=== PATIENT | male | born 1955 | race Caucasian/White ===

== ENCOUNTER 2017-10-05 16:24 | Inpatient (IN) ==
[2017-10-05] MEDS ORDERED: ALBUTEROL/IPRATROPIUM 3 ML NEB RESP TX STA (17:41)
[2017-10-05] MEDS ORDERED: LEVOFLOXACIN 500 MG TABLET PO STA (17:41)
[2017-10-05] MEDS ORDERED: methylPREDNISolone SOD SUC 125 MG/2 ML VIAL IV STA (17:41)
[2017-10-05] MEDS ORDERED: methylPREDNISolone SOD SUC 125 MG/2 ML VIAL ONE (18:12)
[2017-10-05] MEDS ORDERED: LEVOFLOXACIN 500 MG TABLET ONE (18:12)
[2017-10-05] MEDS ORDERED: LEVALBUTEROL 1.25 MG/3 ML NEB RESP TX STA (18:23)
[2017-10-05 18:32] LABS: ABG HCO3 27.9 MMOL/L (20-26); ABG Oxygen Saturation 95.1 % (95-100); ABG PCO2 52.2 MM HG (35-48); ABG PH 7.374 (7.35-7.45); ABG PO2 82.2 MM HG (80-95)
[2017-10-05 18:54] LABS: Basophils % 0.4 % (0.0-0.8); Eosinophils # 0.1 10*3/uL (0.0-0.87); Eosinophils % 1.2 % (0.00-10.9); Hematocrit 30.6 VOL% (42.0-52.0); Hemoglobin 9.9 GM/DL (14.0-18.0); Immature Granulocytes % 0.5 %; Immature Granulocytes Absolute 0.04 #; Mean Corpuscular HGB Conc 32.4 GM/DL (32-36); Mean Corpuscular Hemoglobin 28 PG (27-34); Mean Corpuscular Volume 86.4 FL (87-102); Mean Platelet Volume 9.6 FL (9.6-12.0); Monocytes # 0.8 10*3/uL (0.11-0.8); Monocytes % 10.3 % (1.7-12.7); Neutrophils # 5.8 10*3/uL (1.4-7.4); Neutrophils % 74.6 % (38.7-73.9); Platelet Count 441 T/CUMM (130-400); Red Blood Count 3.54 MC/CUMM (3.8-5.5); Red Cell Distribution Width 14.8 % (9.3-17.3); White Blood Count 7.7 T/CUMM (4-12)
[2017-10-05 18:55] LABS: Alanine Aminotransferase 14 U/L (16-61); Albumin 2.2 G/DL (3.4-5.0); Alkaline Phosphatase 185 U/L (45-117); Aspartate Amino Transferase 18 U/L (0-37); Bilirubin,Total < 0.39 MG/DL (0.2-1.0); Blood Urea Nitrogen 9 MG/DL (7-18); Calcium 8.2 MG/DL (8.5-10.1); Glucose 119 MG/DL (74-106); Osmolality,Calculated 263.5 MOS/KG (273-304); Potassium 3.9 MMOL/L (3.5-5.1); Sodium 132 MMOL/L (136-145); Total Protein 6.9 G/DL (6.4-8.3); Troponin I Only < 0.015 NG/ML (0.00-0.045)
[2017-10-05] MEDS ORDERED: SODIUM CHLORIDE 0.9% 1,000 ML IV STA (19:21)
[2017-10-05] MEDS ORDERED: ONDANSETRON 4 MG/2 ML VIAL IV PRN (20:47)
[2017-10-05] MEDS ORDERED: NICOTINE 21 MG/24 HR PATCH TRANSDERM PRN (20:47)
[2017-10-05] MEDS ORDERED: GLUCAGON 1 MG VIAL IM PRN (20:47)
[2017-10-05] MEDS ORDERED: ALBUTEROL/IPRATROPIUM 3 ML NEB RESP TX PRN (20:47)
[2017-10-05] MEDS ORDERED: DEXTROSE 50% 25 GM/50 ML VIAL IV PRN (20:47)
[2017-10-05] MEDS ORDERED: ZALEPLON 5 MG CAPSULE PO PRN (20:47)
[2017-10-05] MEDS ORDERED: MORPHINE 4 MG/1 ML VIAL IV PRN (20:47)
[2017-10-05] MEDS: ENOXAPARIN 40 MG/0.4 ML SYRINGE SUBCUT SCH (21:40)
[2017-10-05] MEDS: CILOSTAZOL 50 MG TABLET PO SCH (21:41)
[2017-10-05] MEDS: DOCUSATE SODIUM 100 MG CAPSULE PO SCH (21:41)
[2017-10-05] MEDS: INSULIN REGULAR 100 UNIT/ML SUBCUT SCH (21:42)
[2017-10-05] MEDS: SODIUM CHLORIDE 0.9% 1,000 ML IV SCH (21:42)
[2017-10-05 21:47] LABS: Risk Ratio 3.3
[2017-10-06] MEDS ORDERED: METOPROLOL TARTRATE 5 MG/5 ML VIAL IV ONE (00:14)
[2017-10-06] MEDS: ALBUTEROL/IPRATROPIUM 3 ML NEB RESP TX SCH ×4 (00:29→19:31)
[2017-10-06] MEDS: methylPREDNISolone SOD SUC 40 MG/1 ML VIAL IV SCH ×2 (02:50→09:00)
[2017-10-06] MEDS: SODIUM CHLORIDE 0.9% 1,000 ML IV SCH ×3 (06:11→23:42)
[2017-10-06] MEDS: INSULIN REGULAR 100 UNIT/ML SUBCUT SCH ×4 (08:01→21:02)
[2017-10-06] MEDS: PANTOPRAZOLE 40 MG TABLET PO SCH (09:00)
[2017-10-06] MEDS: MULTIVITAMIN (CENTRUM) TABLET PO SCH (09:00)
[2017-10-06] MEDS: DOCUSATE SODIUM 100 MG CAPSULE PO SCH ×2 (09:00→20:58)
[2017-10-06] MEDS: CILOSTAZOL 50 MG TABLET PO SCH (09:00)
[2017-10-06] MEDS: THIAMINE 100 MG TABLET PO SCH (09:00)
[2017-10-06] MEDS: FOLIC ACID 1 MG TABLET PO SCH (09:01)
[2017-10-06] MEDS: ASPIRIN EC 81 MG TABLET PO SCH (09:01)
[2017-10-06] MEDS ORDERED: ALBUTEROL/IPRATROPIUM 3 ML NEB RESP TX PRN (10:13)
[2017-10-06] MEDS: DEXAMETHASONE 4 MG/1 ML VIAL IV SCH (16:22)
[2017-10-06] MEDS: ENOXAPARIN 40 MG/0.4 ML SYRINGE SUBCUT SCH (20:58)
[2017-10-07] MEDS: ALBUTEROL/IPRATROPIUM 3 ML NEB RESP TX SCH ×4 (00:30→18:47)
[2017-10-07] MEDS: DEXAMETHASONE 4 MG/1 ML VIAL IV SCH ×3 (01:20→16:56)
[2017-10-07] MEDS: SODIUM CHLORIDE 0.9% 1,000 ML IV SCH ×4 (05:38→16:56)
[2017-10-07 06:28] LABS: Basophils % 0.1 % (0.0-0.8); Hematocrit 30.1 VOL% (42.0-52.0); Hemoglobin 9.1 GM/DL (14.0-18.0); Immature Granulocytes Absolute 0.16 #; Lymphocytes # 0.8 10*3/uL (1.4-4.0); Lymphocytes % 5.1 % (21.2-54.2); Mean Corpuscular HGB Conc 30.2 GM/DL (32-36); Mean Corpuscular Hemoglobin 27 PG (27-34); Mean Corpuscular Volume 89.3 FL (87-102); Mean Platelet Volume 9.3 FL (9.6-12.0); Monocytes # 0.6 10*3/uL (0.11-0.8); Monocytes % 4.1 % (1.7-12.7); Neutrophils # 13.9 10*3/uL (1.4-7.4); Neutrophils % 89.7 % (38.7-73.9); Platelet Count 403 T/CUMM (130-400); Red Blood Count 3.37 MC/CUMM (3.8-5.5); Red Cell Distribution Width 14.7 % (9.3-17.3); White Blood Count 15.4 T/CUMM (4-12)
[2017-10-07 07:00] LABS: Partial Thromboplastin Time 31.7 SECS (0-40)
[2017-10-07] MEDS ORDERED: BENZONATATE 100 MG CAPSULE PO ONE (08:00)
[2017-10-07] MEDS ORDERED: diphenhydrAMINE 50 MG/1 ML VIAL IM ONE (08:00)
[2017-10-07] MEDS ORDERED: MEPERIDINE 50 MG/1 ML VIAL IM ONE (08:00)
[2017-10-07] MEDS: FOLIC ACID 1 MG TABLET PO SCH (08:15)
[2017-10-07] MEDS: DOCUSATE SODIUM 100 MG CAPSULE PO SCH ×2 (08:15→20:09)
[2017-10-07] MEDS: PANTOPRAZOLE 40 MG TABLET PO SCH (08:15)
[2017-10-07] MEDS: THIAMINE 100 MG TABLET PO SCH (08:15)
[2017-10-07] MEDS: ASPIRIN EC 81 MG TABLET PO SCH (08:15)
[2017-10-07] MEDS: MULTIVITAMIN (CENTRUM) TABLET PO SCH (08:15)
[2017-10-07] MEDS: INSULIN REGULAR 100 UNIT/ML SUBCUT SCH ×4 (08:16→20:43)
[2017-10-07] MEDS: LIDOCAINE 2% VISCOUS 100 ML BOTTLE SWISH/SPIT ONE ×2 (08:40→10:02)
[2017-10-07] MEDS: LIDOCAINE 2% 20 ML VIAL RESP TX ONE ×2 (08:45→10:02)
[2017-10-07] MEDS ORDERED: MIDAZOLAM 2 MG/2 ML VIAL ONE (08:47)
[2017-10-07] MEDS: LIDOCAINE 1% 20 ML VIAL MISC INJ ONE ×2 (09:00→10:02)
[2017-10-07] MEDS ORDERED: EPINEPHrine 1 MG/10 ML SYRINGE IV ONE (09:00)
[2017-10-07] MEDS ORDERED: EPINEPHrine 1 MG/ML VIAL ONE (10:19)
[2017-10-07] MEDS: ENOXAPARIN 40 MG/0.4 ML SYRINGE SUBCUT SCH (20:09)
[2017-10-08] MEDS: DEXAMETHASONE 4 MG/1 ML VIAL IV SCH ×3 (00:14→17:34)
[2017-10-08] MEDS: SODIUM CHLORIDE 0.9% 1,000 ML IV SCH ×4 (00:16→22:25)
[2017-10-08] MEDS: ALBUTEROL/IPRATROPIUM 3 ML NEB RESP TX SCH ×4 (00:26→19:06)
[2017-10-08 04:47] LABS: Hematocrit 32.7 VOL% (42.0-52.0); Immature Granulocytes % 0.7 %; Immature Granulocytes Absolute 0.08 #; Lymphocytes # 0.9 10*3/uL (1.4-4.0); Lymphocytes % 7.3 % (21.2-54.2); Mean Corpuscular HGB Conc 30.6 GM/DL (32-36); Mean Corpuscular Hemoglobin 27 PG (27-34); Mean Corpuscular Volume 88.6 FL (87-102); Mean Platelet Volume 9.8 FL (9.6-12.0); Monocytes # 0.4 10*3/uL (0.11-0.8); Monocytes % 3.3 % (1.7-12.7); Neutrophils # 10.4 10*3/uL (1.4-7.4); Neutrophils % 88.7 % (38.7-73.9); Platelet Count 426 T/CUMM (130-400); Red Blood Count 3.69 MC/CUMM (3.8-5.5); Red Cell Distribution Width 14.6 % (9.3-17.3); White Blood Count 11.8 T/CUMM (4-12)
[2017-10-08 05:14] LABS: Calcium 8.2 MG/DL (8.5-10.1); Potassium 4.3 MMOL/L (3.5-5.1)
[2017-10-08] MEDS: INSULIN REGULAR 100 UNIT/ML SUBCUT SCH ×4 (08:52→21:21)
[2017-10-08] MEDS: PANTOPRAZOLE 40 MG TABLET PO SCH (08:53)
[2017-10-08] MEDS: THIAMINE 100 MG TABLET PO SCH (08:53)
[2017-10-08] MEDS: DOCUSATE SODIUM 100 MG CAPSULE PO SCH ×2 (08:53→21:20)
[2017-10-08] MEDS: ASPIRIN EC 81 MG TABLET PO SCH (08:53)
[2017-10-08] MEDS: FOLIC ACID 1 MG TABLET PO SCH (08:53)
[2017-10-08] MEDS: MULTIVITAMIN (CENTRUM) TABLET PO SCH (08:53)
[2017-10-08] MEDS: traZODone 50 MG TABLET PO SCH (21:20)
[2017-10-08] MEDS: ENOXAPARIN 40 MG/0.4 ML SYRINGE SUBCUT SCH (21:20)
[2017-10-09] MEDS: ALBUTEROL/IPRATROPIUM 3 ML NEB RESP TX SCH ×4 (00:15→19:02)
[2017-10-09] MEDS: DEXAMETHASONE 4 MG/1 ML VIAL IV SCH ×3 (01:05→16:46)
[2017-10-09] MEDS: SODIUM CHLORIDE 0.9% 1,000 ML IV SCH ×3 (07:05→23:15)
[2017-10-09] MEDS: INSULIN REGULAR 100 UNIT/ML SUBCUT SCH ×4 (07:42→20:52)
[2017-10-09] MEDS: ASPIRIN EC 81 MG TABLET PO SCH (09:16)
[2017-10-09] MEDS: FOLIC ACID 1 MG TABLET PO SCH (09:16)
[2017-10-09] MEDS: PANTOPRAZOLE 40 MG TABLET PO SCH (09:16)
[2017-10-09] MEDS: DOCUSATE SODIUM 100 MG CAPSULE PO SCH ×2 (09:17→20:16)
[2017-10-09] MEDS: MULTIVITAMIN (CENTRUM) TABLET PO SCH (09:17)
[2017-10-09] MEDS: THIAMINE 100 MG TABLET PO SCH (09:17)
[2017-10-09] MEDS: ENOXAPARIN 40 MG/0.4 ML SYRINGE SUBCUT SCH (20:16)
[2017-10-09] MEDS: traZODone 50 MG TABLET PO SCH (20:16)
[2017-10-10] MEDS: ALBUTEROL/IPRATROPIUM 3 ML NEB RESP TX SCH ×4 (00:04→19:19)
[2017-10-10] MEDS: DEXAMETHASONE 4 MG/1 ML VIAL IV SCH ×3 (00:33→18:00)
[2017-10-10] MEDS: SODIUM CHLORIDE 0.9% 1,000 ML IV SCH (07:50)
[2017-10-10] MEDS: INSULIN REGULAR 100 UNIT/ML SUBCUT SCH ×3 (09:10→15:42)
[2017-10-10] MEDS: ASPIRIN EC 81 MG TABLET PO SCH (09:11)
[2017-10-10] MEDS: THIAMINE 100 MG TABLET PO SCH (09:11)
[2017-10-10] MEDS: FOLIC ACID 1 MG TABLET PO SCH (09:11)
[2017-10-10] MEDS: PANTOPRAZOLE 40 MG TABLET PO SCH (09:11)
[2017-10-10] MEDS: MULTIVITAMIN (CENTRUM) TABLET PO SCH (09:11)
[2017-10-10] MEDS: DOCUSATE SODIUM 100 MG CAPSULE PO SCH ×2 (09:11→20:55)
[2017-10-10] MEDS: NICOTINE 14 MG/24 HR PATCH TRANSDERM PRN (09:17)
[2017-10-10] MEDS: CLORAZEPATE 7.5 MG TABLET PO SCH ×3 (10:22→20:55)
[2017-10-10] MEDS: traZODone 50 MG TABLET PO SCH (20:56)
[2017-10-10] MEDS: ENOXAPARIN 40 MG/0.4 ML SYRINGE SUBCUT SCH (20:56)
[2017-10-11] MEDS: ALBUTEROL/IPRATROPIUM 3 ML NEB RESP TX SCH ×4 (00:37→19:38)
[2017-10-11] MEDS: INSULIN REGULAR 100 UNIT/ML SUBCUT SCH ×5 (04:07→23:07)
[2017-10-11] MEDS: DEXAMETHASONE 4 MG/1 ML VIAL IV SCH ×3 (05:23→21:03)
[2017-10-11 05:51] LABS: Basophils % 0.1 % (0.0-0.8); Eosinophils % 0.1 % (0.00-10.9); Hematocrit 33.1 VOL% (42.0-52.0); Hemoglobin 10.5 GM/DL (14.0-18.0); Immature Granulocytes % 0.4 %; Immature Granulocytes Absolute 0.07 #; Lymphocytes # 1.6 10*3/uL (1.4-4.0); Lymphocytes % 10.4 % (21.2-54.2); Mean Corpuscular HGB Conc 31.7 GM/DL (32-36); Mean Corpuscular Hemoglobin 27 PG (27-34); Mean Corpuscular Volume 85.3 FL (87-102); Mean Platelet Volume 9.3 FL (9.6-12.0); Monocytes # 1.3 10*3/uL (0.11-0.8); Monocytes % 8.6 % (1.7-12.7); Neutrophils # 12.6 10*3/uL (1.4-7.4); Neutrophils % 80.4 % (38.7-73.9); Platelet Count 413 T/CUMM (130-400); Red Blood Count 3.88 MC/CUMM (3.8-5.5); Red Cell Distribution Width 15.1 % (9.3-17.3); White Blood Count 15.6 T/CUMM (4-12)
[2017-10-11 06:14] LABS: Calcium 8.1 MG/DL (8.5-10.1); Osmolality,Calculated 264.4 MOS/KG (273-304); Potassium 4.4 MMOL/L (3.5-5.1)
[2017-10-11] MEDS: NICOTINE 14 MG/24 HR PATCH TRANSDERM PRN (09:21)
[2017-10-11] MEDS: MULTIVITAMIN (CENTRUM) TABLET PO SCH (09:22)
[2017-10-11] MEDS: ASPIRIN EC 81 MG TABLET PO SCH (09:22)
[2017-10-11] MEDS: CLORAZEPATE 7.5 MG TABLET PO SCH ×3 (09:23→21:01)
[2017-10-11] MEDS: THIAMINE 100 MG TABLET PO SCH (09:23)
[2017-10-11] MEDS: DOCUSATE SODIUM 100 MG CAPSULE PO SCH ×2 (09:23→21:02)
[2017-10-11] MEDS: PANTOPRAZOLE 40 MG TABLET PO SCH (09:23)
[2017-10-11] MEDS: FOLIC ACID 1 MG TABLET PO SCH (09:23)
[2017-10-11] MEDS: ENOXAPARIN 40 MG/0.4 ML SYRINGE SUBCUT SCH (21:02)
[2017-10-11] MEDS: traZODone 50 MG TABLET PO SCH (21:02)
[2017-10-12] MEDS: ALBUTEROL/IPRATROPIUM 3 ML NEB RESP TX SCH ×3 (00:05→13:40)
[2017-10-12] MEDS: DEXAMETHASONE 4 MG/1 ML VIAL IV SCH (06:06)
[2017-10-12 06:58] LABS: Basophils % 0.1 % (0.0-0.8); Hematocrit 33.1 VOL% (42.0-52.0); Hemoglobin 10.5 GM/DL (14.0-18.0); Immature Granulocytes % 0.6 %; Immature Granulocytes Absolute 0.08 #; Lymphocytes # 1.2 10*3/uL (1.4-4.0); Lymphocytes % 8.2 % (21.2-54.2); Mean Corpuscular HGB Conc 31.7 GM/DL (32-36); Mean Corpuscular Hemoglobin 27 PG (27-34); Mean Corpuscular Volume 84.4 FL (87-102); Mean Platelet Volume 9.4 FL (9.6-12.0); Monocytes # 1.4 10*3/uL (0.11-0.8); Monocytes % 9.7 % (1.7-12.7); Neutrophils # 11.8 10*3/uL (1.4-7.4); Neutrophils % 81.4 % (38.7-73.9); Platelet Count 400 T/CUMM (130-400); Red Blood Count 3.92 MC/CUMM (3.8-5.5); Red Cell Distribution Width 14.9 % (9.3-17.3); White Blood Count 14.5 T/CUMM (4-12)
[2017-10-12 07:30] LABS: Calcium 8.3 MG/DL (8.5-10.1); Osmolality,Calculated 266.4 MOS/KG (273-304); Potassium 4.7 MMOL/L (3.5-5.1)
[2017-10-12] MEDS: MULTIVITAMIN (CENTRUM) TABLET PO SCH (09:10)
[2017-10-12] MEDS: PANTOPRAZOLE 40 MG TABLET PO SCH (09:10)
[2017-10-12] MEDS: CLORAZEPATE 7.5 MG TABLET PO SCH ×2 (09:10→16:48)
[2017-10-12] MEDS: ASPIRIN EC 81 MG TABLET PO SCH (09:10)
[2017-10-12] MEDS: DOCUSATE SODIUM 100 MG CAPSULE PO SCH (09:10)
[2017-10-12] MEDS: THIAMINE 100 MG TABLET PO SCH (09:10)
[2017-10-12] MEDS: FOLIC ACID 1 MG TABLET PO SCH (09:10)
[2017-10-12] MEDS: INSULIN REGULAR 100 UNIT/ML SUBCUT SCH ×3 (09:54→17:25)
[2017-10-12 11:43] VITALS: BP 87/51
[2017-10-12] MEDS ORDERED: DEXAMETHASONE 4 MG TABLET PO SCH (15:00)
== END 2017-10-12 17:24 | disposition home or self-care (01) | DRG 181 ==
LOC: N.ED 16:24 → N.EDINP 19:20 → SUATTDRO 19:20 → N.2E 20:16
PROVIDERS: ADMIT Internal Medicine Cardiovascular Disease; ATTEND Internal Medicine

== ENCOUNTER 2017-10-26 01:09 | Inpatient (IN) ==
[2017-10-26 02:12] LABS: Basophils % 0.3 % (0.0-0.8); Eosinophils # 0.1 10*3/uL (0.0-0.87); Eosinophils % 0.8 % (0.00-10.9); Hematocrit 37.7 VOL% (42.0-52.0); Hemoglobin 11.5 GM/DL (14.0-18.0); Immature Granulocytes % 1.5 %; Immature Granulocytes Absolute 0.23 #; Lymphocytes # 3.4 10*3/uL (1.4-4.0); Lymphocytes % 21.3 % (21.2-54.2); Mean Corpuscular HGB Conc 30.5 GM/DL (32-36); Mean Corpuscular Hemoglobin 27 PG (27-34); Mean Corpuscular Volume 88.5 FL (87-102); Mean Platelet Volume 9.8 FL (9.6-12.0); Monocytes % 6.2 % (1.7-12.7); Neutrophils # 11.1 10*3/uL (1.4-7.4); Neutrophils % 69.9 % (38.7-73.9); Platelet Count 346 T/CUMM (130-400); Red Blood Count 4.26 MC/CUMM (3.8-5.5); Red Cell Distribution Width 17.2 % (9.3-17.3); White Blood Count 15.9 T/CUMM (4-12)
[2017-10-26 02:15] LABS: INR 0.9; PT Patient Result 9.8 SECS
[2017-10-26 02:51] LABS: Potassium 4.1 MMOL/L (3.5-5.1)
[2017-10-26 02:54] LABS: Calcium 8.1 MG/DL (8.5-10.1)
[2017-10-26 02:55] LABS: Albumin 2.6 G/DL (3.4-5.0); Osmolality,Calculated 275.7 MOS/KG (273-304)
[2017-10-26 03:00] LABS: Bilirubin,Total 0.6 MG/DL (0.2-1.0); Total Protein 6.3 G/DL (6.4-8.3)
[2017-10-26] MEDS ORDERED: ROCURONIUM 100 MG/10 ML VIAL IV ONE (03:00)
[2017-10-26] MEDS ORDERED: ETOMIDATE 20 MG/10 ML VIAL IV ONE (03:00)
[2017-10-26] MEDS ORDERED: PROPOFOL 1,000 MG/100 ML BOTTLE IV ONE (03:00)
[2017-10-26] MEDS ORDERED: MIDAZOLAM 10 MG/2 ML VIAL IV STA (03:03)
[2017-10-26 03:09] LABS: Hypochromasia 1+; Microcytosis 1+; Platelet Estimate Increased
[2017-10-26 03:10] LABS: Polychromasia Few
[2017-10-26] MEDS ORDERED: PROPOFOL 1,000 MG/100 ML BOTTLE IV SCH (03:30)
[2017-10-26 03:47] LABS: ABG Base Excess 3.1 MMOL/L (-2.5-2.5); ABG HCO3 27.2 MMOL/L (20-26); ABG PCO2 53.1 MM HG (35-48); ABG PH 7.357 (7.35-7.45); ABG TCO2 26.7 MMOL/L (23-27); Allen Test Positive; Pt O2 Delivery Device Ventilator
[2017-10-26] MEDS ORDERED: MIDAZOLAM 10 MG/2 ML VIAL ONE (04:05)
[2017-10-26] MEDS ORDERED: VECURONIUM 10 MG VIAL IV ONE (04:08)
[2017-10-26] MEDS ORDERED: VECURONIUM 10 MG VIAL IV STA (04:14)
[2017-10-26] MEDS ORDERED: ONDANSETRON 4 MG/2 ML VIAL IV PRN (04:48)
[2017-10-26] MEDS ORDERED: ALBUTEROL 2.5 MG/3 ML NEB RESP TX PRN (04:48)
[2017-10-26 04:49] LABS: ABG Base Excess 3.4 MMOL/L (-2.5-2.5); ABG HCO3 27.4 MMOL/L (20-26); ABG Oxygen Saturation 98.8 % (95-100); ABG PCO2 42.4 MM HG (35-48); ABG PH 7.429 (7.35-7.45); ABG TCO2 25.5 MMOL/L (23-27); Allen Test Positive; Pt O2 Delivery Device Ventilator
[2017-10-26] MEDS ORDERED: MIDAZOLAM 100 MG in SODIUM CHLORIDE 0.9% 80 ML IV SCH (05:00)
[2017-10-26] MEDS ORDERED: PIPERACILLIN/TAZOBACTAM 3,375 MG VIAL IV ONE (05:16)
[2017-10-26] MEDS ORDERED: LEVOFLOXACIN INJ 150 ML IV ONE (05:16)
[2017-10-26] MEDS ORDERED: SODIUM CHLORIDE 0.9% 100 ML IV ONE (05:17)
[2017-10-26] MEDS: LEVOFLOXACIN INJ 750 MG in PREMIX 1 EACH IV SCH (05:25)
[2017-10-26] MEDS: SODIUM CHLORIDE 0.9% 1,000 ML IV SCH ×2 (05:38→15:19)
[2017-10-26] MEDS: fentaNYL INJ 1,250 MCG in SODIUM CHLORIDE 0.9% 225 ML IV PRN (05:39)
[2017-10-26] MEDS: PIPERACILLIN/TAZOBACTAM 3,375 MG in SODIUM CHLORIDE 0.9% 100 ML IV SCH ×3 (05:45→20:24)
[2017-10-26] MEDS: PANTOPRAZOLE 40 MG VIAL IV SCH (05:52)
[2017-10-26] MEDS ORDERED: NOREPINEPHRINE 4 MG/4 ML VIAL IV ONE (06:13)
[2017-10-26] MEDS: NOREPINEPHRINE 8 MG in SODIUM CHLORIDE 0.9% 242 ML IV PRN (06:28)
[2017-10-26 06:58] LABS: Hematocrit 30.6 VOL% (42.0-52.0); Hemoglobin 9.8 GM/DL (14.0-18.0)
[2017-10-26] MEDS: ALBUTEROL/IPRATROPIUM 3 ML NEB RESP TX SCH ×3 (07:41→19:52)
[2017-10-26] MEDS ORDERED: DEXAMETHASONE 4 MG TABLET PO SCH (09:00)
[2017-10-26] MEDS ORDERED: DEXAMETHASONE 4 MG TABLET ONE (10:49)
[2017-10-26] MEDS: FOLIC ACID 1 MG TABLET PO SCH (10:53)
[2017-10-26 11:43] LABS: Hemoglobin 10.2 GM/DL (14.0-18.0)
[2017-10-26] MEDS: DEXAMETHASONE 10 MG/1 ML VIAL IV SCH ×2 (15:04→20:23)
[2017-10-26] MEDS: RACEPINEPHRINE 0.5 ML NEB RESP TX SCH ×2 (15:42→19:52)
[2017-10-26] MEDS: MIDAZOLAM 100 MG in SODIUM CHLORIDE 0.9% 80 ML IV PRN (19:00)
[2017-10-26] MEDS ORDERED: PHENYLEPHRINE DRIP 40 MG/250 ML PREMIX IV PRN (19:14)
[2017-10-27] MEDS: NOREPINEPHRINE 8 MG in SODIUM CHLORIDE 0.9% 242 ML IV PRN ×2 (00:16→21:03)
[2017-10-27] MEDS: SODIUM CHLORIDE 0.9% 1,000 ML IV SCH ×3 (00:16→21:01)
[2017-10-27] MEDS: RACEPINEPHRINE 0.5 ML NEB RESP TX SCH ×4 (01:10→12:26)
[2017-10-27] MEDS: ALBUTEROL/IPRATROPIUM 3 ML NEB RESP TX SCH ×4 (01:10→19:58)
[2017-10-27] MEDS: MIDAZOLAM 100 MG in SODIUM CHLORIDE 0.9% 80 ML IV PRN (04:31)
[2017-10-27 05:27] LABS: Basophils % 0.1 % (0.0-0.8); Hematocrit 33.4 VOL% (42.0-52.0); Hemoglobin 10.8 GM/DL (14.0-18.0); Immature Granulocytes Absolute 0.18 #; Lymphocytes % 22.3 % (21.2-54.2); Mean Corpuscular HGB Conc 32.3 GM/DL (32-36); Mean Corpuscular Hemoglobin 27 PG (27-34); Mean Corpuscular Volume 84.1 FL (87-102); Mean Platelet Volume 9.3 FL (9.6-12.0); Monocytes # 0.3 10*3/uL (0.11-0.8); Monocytes % 1.6 % (1.7-12.7); Neutrophils # 13.3 10*3/uL (1.4-7.4); Platelet Count 337 T/CUMM (130-400); Red Blood Count 3.97 MC/CUMM (3.8-5.5); Red Cell Distribution Width 17.1 % (9.3-17.3); White Blood Count 17.8 T/CUMM (4-12)
[2017-10-27 05:32] LABS: PT Patient Result 10.9 SECS
[2017-10-27] MEDS: PANTOPRAZOLE 40 MG VIAL IV SCH (05:56)
[2017-10-27] MEDS: DEXAMETHASONE 10 MG/1 ML VIAL IV SCH ×4 (05:56→21:01)
[2017-10-27] MEDS: LEVOFLOXACIN INJ 750 MG in PREMIX 1 EACH IV SCH (05:56)
[2017-10-27 05:58] LABS: Calcium 8.3 MG/DL (8.5-10.1); Potassium 4.4 MMOL/L (3.5-5.1)
[2017-10-27] MEDS: PIPERACILLIN/TAZOBACTAM 3,375 MG in SODIUM CHLORIDE 0.9% 100 ML IV SCH ×3 (05:58→21:02)
[2017-10-27] MEDS: FOLIC ACID 1 MG TABLET PO SCH (09:03)
[2017-10-27 09:59] LABS: Pt O2 Delivery Device Ventilator
[2017-10-27 10:00] LABS: ABG Base Excess 3.1 MMOL/L (-2.5-2.5); ABG HCO3 27.2 MMOL/L (20-26); ABG Oxygen Saturation 99.9 % (95-100); ABG PCO2 41.1 MM HG (35-48); ABG PH 7.435 (7.35-7.45); ABG TCO2 24.9 MMOL/L (23-27)
[2017-10-27] MEDS ORDERED: GLUCAGON 1 MG VIAL IM PRN (10:54)
[2017-10-27] MEDS ORDERED: DEXTROSE 50% 25 GM/50 ML VIAL IV PRN (10:54)
[2017-10-27] MEDS ORDERED: RACEPINEPHRINE 0.5 ML NEB RESP TX PRN (12:00)
[2017-10-27 12:01] LABS: Apearance,Urine CLOUDY (Clear); Bacteria,Urine Occasional /HPF (Few); Bilirubin,Urine Negative (Negative); Blood, Urine Negative (Negative); Glucose,Urine (UA) Negative (Negative); Ketones,Urine Negative (Negative); Mucus,Urine Occasional /LPF (Occasional); Nitrite,Urine Negative (Negative); Protein,Urine Negative; RBC,Urine 3 /HPF (0-4); Squamous Epithelial Cell,Urine Occasional /HPF (0-10); Uric Acid Crystals,Urine Many /HPF (<1); Urine Color Yellow (Yellow); Urine Specific Gravity 1.018 (1.001-1.035); Urine Urobilinogen < 2.0 EU/DL (0.2-1.0); WBC,Urine 2 /HPF (0-6)
[2017-10-27] MEDS: INSULIN REGULAR 100 UNIT/ML SUBCUT SCH ×2 (13:39→17:58)
[2017-10-27] MEDS: fentaNYL INJ 1,250 MCG in SODIUM CHLORIDE 0.9% 225 ML IV PRN (19:02)
[2017-10-28] MEDS: ALBUTEROL/IPRATROPIUM 3 ML NEB RESP TX SCH ×4 (00:27→19:28)
[2017-10-28] MEDS: DEXAMETHASONE 10 MG/1 ML VIAL IV SCH ×4 (03:00→21:38)
[2017-10-28 04:03] LABS: ABG Base Excess 4.4 MMOL/L (-2.5-2.5); ABG HCO3 28.4 MMOL/L (20-26); ABG Oxygen Saturation 99.8 % (95-100); ABG PCO2 35.7 MM HG (35-48); ABG PH 7.497 (7.35-7.45); ABG TCO2 24.8 MMOL/L (23-27)
[2017-10-28] MEDS: MIDAZOLAM 100 MG in SODIUM CHLORIDE 0.9% 80 ML IV PRN (05:01)
[2017-10-28] MEDS: LEVOFLOXACIN INJ 750 MG in PREMIX 1 EACH IV SCH (05:07)
[2017-10-28] MEDS: PANTOPRAZOLE 40 MG VIAL IV SCH (05:07)
[2017-10-28] MEDS: PIPERACILLIN/TAZOBACTAM 3,375 MG in SODIUM CHLORIDE 0.9% 100 ML IV SCH ×3 (05:07→21:38)
[2017-10-28 06:12] LABS: Basophils % 0.1 % (0.0-0.8); Hematocrit 31.6 VOL% (42.0-52.0); Hemoglobin 10.2 GM/DL (14.0-18.0); Immature Granulocytes % 0.6 %; Immature Granulocytes Absolute 0.09 #; Lymphocytes # 2.4 10*3/uL (1.4-4.0); Lymphocytes % 16.8 % (21.2-54.2); Mean Corpuscular HGB Conc 32.3 GM/DL (32-36); Mean Corpuscular Hemoglobin 27 PG (27-34); Mean Corpuscular Volume 84.7 FL (87-102); Mean Platelet Volume 9.6 FL (9.6-12.0); Monocytes # 0.3 10*3/uL (0.11-0.8); Monocytes % 1.8 % (1.7-12.7); Neutrophils # 11.5 10*3/uL (1.4-7.4); Neutrophils % 80.7 % (38.7-73.9); PT Patient Result 10.6 SECS; Partial Thromboplastin Time 29.7 SECS (0-40); Platelet Count 268 T/CUMM (130-400); Red Blood Count 3.73 MC/CUMM (3.8-5.5); Red Cell Distribution Width 17.3 % (9.3-17.3); White Blood Count 14.3 T/CUMM (4-12)
[2017-10-28 06:34] LABS: Prealbumin 17.8 MG/DL (20-40)
[2017-10-28] MEDS: INSULIN REGULAR 100 UNIT/ML SUBCUT SCH ×3 (06:38→11:55)
[2017-10-28] MEDS: SODIUM CHLORIDE 0.9% 1,000 ML IV SCH ×4 (07:31→17:44)
[2017-10-28] MEDS: FOLIC ACID 1 MG TABLET PO SCH (09:00)
[2017-10-28] MEDS: CLORAZEPATE 7.5 MG TABLET PO SCH ×2 (16:53→21:38)
[2017-10-29] MEDS: ALBUTEROL/IPRATROPIUM 3 ML NEB RESP TX SCH ×4 (00:49→19:23)
[2017-10-29] MEDS: SODIUM CHLORIDE 0.9% 1,000 ML IV SCH ×3 (02:55→14:41)
[2017-10-29 03:28] LABS: ABG Base Excess 2.8 MMOL/L (-2.5-2.5); ABG HCO3 26.5 MMOL/L (20-26); ABG Oxygen Saturation 73.6 % (95-100); ABG PCO2 44.3 MM HG (35-48); ABG PH 7.406 (7.35-7.45); ABG PO2 42.3 MM HG (80-95); ABG TCO2 25.5 MMOL/L (23-27); Allen Test Positive
[2017-10-29] MEDS: DEXAMETHASONE 10 MG/1 ML VIAL IV SCH ×4 (03:50→21:17)
[2017-10-29 04:23] LABS: Basophils % 0.1 % (0.0-0.8); Hematocrit 33.3 VOL% (42.0-52.0); Hemoglobin 10.3 GM/DL (14.0-18.0); Immature Granulocytes % 0.7 %; Immature Granulocytes Absolute 0.12 #; Lymphocytes # 1.8 10*3/uL (1.4-4.0); Lymphocytes % 10.3 % (21.2-54.2); Mean Corpuscular HGB Conc 30.9 GM/DL (32-36); Mean Corpuscular Hemoglobin 27 PG (27-34); Mean Corpuscular Volume 87.6 FL (87-102); Mean Platelet Volume 9.4 FL (9.6-12.0); Monocytes # 0.4 10*3/uL (0.11-0.8); Monocytes % 2.4 % (1.7-12.7); Neutrophils % 86.5 % (38.7-73.9); Platelet Count 232 T/CUMM (130-400); Red Cell Distribution Width 17.3 % (9.3-17.3); White Blood Count 17.3 T/CUMM (4-12)
[2017-10-29 05:00] LABS: Albumin 2.3 G/DL (3.4-5.0); Bilirubin,Total 0.5 MG/DL (0.2-1.0); Osmolality,Calculated 284.1 MOS/KG (273-304); Potassium 3.9 MMOL/L (3.5-5.1); Total Protein 5.4 G/DL (6.4-8.3)
[2017-10-29] MEDS: PIPERACILLIN/TAZOBACTAM 3,375 MG in SODIUM CHLORIDE 0.9% 100 ML IV SCH ×3 (05:25→21:15)
[2017-10-29] MEDS: PANTOPRAZOLE 40 MG VIAL IV SCH (05:26)
[2017-10-29 05:30] LABS: ABG Base Excess 3.4 MMOL/L (-2.5-2.5); ABG HCO3 27.4 MMOL/L (20-26); ABG Oxygen Saturation 95.5 % (95-100); ABG PCO2 43.8 MM HG (35-48); ABG PH 7.418 (7.35-7.45); ABG PO2 79.1 MM HG (80-95); ABG TCO2 25.8 MMOL/L (23-27); Allen Test Positive
[2017-10-29] MEDS: LEVOFLOXACIN INJ 750 MG in PREMIX 1 EACH IV SCH (05:30)
[2017-10-29] MEDS: FOLIC ACID 1 MG TABLET PO SCH (09:54)
[2017-10-29] MEDS: CLORAZEPATE 7.5 MG TABLET PO SCH ×3 (09:54→21:16)
[2017-10-29] MEDS ORDERED: PALONOSETRON 0.25 MG/5 ML VIAL IV ONE (13:30)
[2017-10-29] MEDS ORDERED: DEXAMETHASONE INJ 20 MG in SODIUM CHLORIDE 0.9% 50 ML IV ONE (13:30)
[2017-10-29] MEDS ORDERED: FOSAPREPITANT 150 MG in SODIUM CHLORIDE 0.9% 100 ML IV ONE (13:30)
[2017-10-29] MEDS: ETOPOSIDE 160 MG in SODIUM CHLORIDE 0.9% 500 ML IV SCH (19:39)
[2017-10-30] MEDS: ALBUTEROL/IPRATROPIUM 3 ML NEB RESP TX SCH ×4 (00:19→19:23)
[2017-10-30 03:54] LABS: ABG Base Excess 3.4 MMOL/L (-2.5-2.5); ABG HCO3 27.4 MMOL/L (20-26); ABG Oxygen Saturation 92.3 % (95-100); ABG PCO2 45.4 MM HG (35-48); ABG PH 7.408 (7.35-7.45); ABG PO2 65.6 MM HG (80-95); Allen Test Positive
[2017-10-30] MEDS: SODIUM CHLORIDE 0.9% 1,000 ML IV SCH ×3 (04:03→23:42)
[2017-10-30] MEDS: DEXAMETHASONE 10 MG/1 ML VIAL IV SCH ×4 (04:04→20:23)
[2017-10-30] MEDS: LEVOFLOXACIN INJ 750 MG in PREMIX 1 EACH IV SCH (05:45)
[2017-10-30] MEDS: PANTOPRAZOLE 40 MG VIAL IV SCH (05:47)
[2017-10-30] MEDS: PIPERACILLIN/TAZOBACTAM 3,375 MG in SODIUM CHLORIDE 0.9% 100 ML IV SCH (07:47)
[2017-10-30] MEDS: CLORAZEPATE 7.5 MG TABLET PO SCH ×3 (09:16→20:23)
[2017-10-30] MEDS: FOLIC ACID 1 MG TABLET PO SCH (09:16)
[2017-10-30] MEDS ORDERED: diphenhydrAMINE 50 MG/1 ML VIAL IV ONE (12:00)
[2017-10-30] MEDS ORDERED: PALONOSETRON 0.25 MG/5 ML VIAL IV ONE (12:00)
[2017-10-30] MEDS ORDERED: FAMOTIDINE 20 MG/2 ML VIAL IV ONE (12:00)
[2017-10-30] MEDS ORDERED: DEXAMETHASONE INJ 20 MG in SODIUM CHLORIDE 0.9% 50 ML IV ONE (12:00)
[2017-10-30] MEDS ORDERED: SODIUM CHLORIDE 0.9% IV ONE (13:00)
[2017-10-30] MEDS ORDERED: CARBOPLATIN IV ONE (13:00)
[2017-10-30] MEDS: ETOPOSIDE 160 MG in SODIUM CHLORIDE 0.9% 500 ML IV SCH (14:57)
[2017-10-31] MEDS: ALBUTEROL/IPRATROPIUM 3 ML NEB RESP TX SCH ×3 (01:16→13:47)
[2017-10-31 03:59] LABS: ABG Base Excess 4.8 MMOL/L (-2.5-2.5); ABG HCO3 28.6 MMOL/L (20-26); ABG PCO2 51.1 MM HG (35-48); ABG PH 7.389 (7.35-7.45); ABG PO2 63.5 MM HG (80-95); ABG TCO2 27.9 MMOL/L (23-27); Allen Test Positive
[2017-10-31] MEDS: DEXAMETHASONE 10 MG/1 ML VIAL IV SCH ×3 (04:16→14:36)
[2017-10-31] MEDS: PANTOPRAZOLE 40 MG VIAL IV SCH (04:21)
[2017-10-31] MEDS: LEVOFLOXACIN INJ 750 MG in PREMIX 1 EACH IV SCH (04:23)
[2017-10-31 05:11] LABS: Basophils % 0.1 % (0.0-0.8); Hematocrit 33.5 VOL% (42.0-52.0); Hemoglobin 10.3 GM/DL (14.0-18.0); Immature Granulocytes % 0.8 %; Immature Granulocytes Absolute 0.11 #; Lymphocytes # 1.6 10*3/uL (1.4-4.0); Lymphocytes % 11.6 % (21.2-54.2); Mean Corpuscular HGB Conc 30.7 GM/DL (32-36); Mean Corpuscular Hemoglobin 27 PG (27-34); Mean Corpuscular Volume 88.4 FL (87-102); Mean Platelet Volume 9.7 FL (9.6-12.0); Monocytes # 0.4 10*3/uL (0.11-0.8); Monocytes % 2.5 % (1.7-12.7); Neutrophils # 11.8 10*3/uL (1.4-7.4); Platelet Count 186 T/CUMM (130-400); Red Blood Count 3.79 MC/CUMM (3.8-5.5); Red Cell Distribution Width 17.4 % (9.3-17.3); White Blood Count 13.9 T/CUMM (4-12)
[2017-10-31 05:49] LABS: Alanine Aminotransferase 15 U/L (16-61); Albumin 2.3 G/DL (3.4-5.0); Alkaline Phosphatase 89 U/L (45-117); Aspartate Amino Transferase 12 U/L (0-37); Bilirubin,Total < 0.39 MG/DL (0.2-1.0); Blood Urea Nitrogen 14 MG/DL (7-18); Calcium 8.3 MG/DL (8.5-10.1); Glucose 106 MG/DL (74-106); Osmolality,Calculated 283.1 MOS/KG (273-304); Potassium 3.8 MMOL/L (3.5-5.1); Sodium 142 MMOL/L (136-145); Total Protein 5.5 G/DL (6.4-8.3)
[2017-10-31] MEDS: FOLIC ACID 1 MG TABLET PO SCH (09:04)
[2017-10-31] MEDS: CLORAZEPATE 7.5 MG TABLET PO SCH ×2 (09:04→14:35)
[2017-10-31] MEDS: SODIUM CHLORIDE 0.9% 1,000 ML IV SCH (09:08)
[2017-10-31] MEDS ORDERED: ZALEPLON 5 MG CAPSULE PO PRN (11:11)
[2017-10-31] MEDS: ETOPOSIDE 160 MG in SODIUM CHLORIDE 0.9% 500 ML IV SCH (11:32)
[2017-10-31 13:05] VITALS: BP 135/75
== END 2017-10-31 15:35 | disposition home or self-care (01) | DRG 166 ==
LOC: N.ED 01:09 → N.EDINP 03:28 → N.CC 10:31 → N.4E 10-29 15:38
PROVIDERS: ADMIT Hospitalist; ATTEND Hospitalist